=== PATIENT | female | born 1940 | race Caucasian/White ===

== ENCOUNTER 2016-11-30 20:59 | Emergency (ER) | payer MEDICARE ==
[2016-11-30 21:57] LABS: Bilirubin Negative (Negative); Blood, Urine Small (Negative); Glucose, Urine (Dipstick) Negative (Negative); Ketone, Urine Negative (Negative); Nitrite Negative (Negative); Protein, Urine (Dipstick) Negative (Neg-Trace); Urobilinogen 0.2 mg/dL (0.2-1.0)
[2016-11-30 22:02] LABS: Bacteria/HPF 2+ HPF (None Seen); Hyaline Casts/LPF 0-3 HYALINE CAST LPF (0-3 Hyaline); Squamous Epithelial 0-3 HPF (0-3)
== END 2016-12-01 00:18 | disposition home or self-care (01) ==
LOC: ERS 20:59
DX: N39.0 Urinary tract infection, site not specified (principal); I25.10 Atherosclerotic heart disease of native coronary artery without angina pectoris; Z85.830 Personal history of malignant neoplasm of bone; E11.9 Type 2 diabetes mellitus without complications; I10 Essential (primary) hypertension; Z85.118 Personal history of other malignant neoplasm of bronchus and lung; Z79.82 Long term (current) use of aspirin; Z79.899 Other long term (current) drug therapy
CPT/HCPCS: 81003; 81015; 99283

== ENCOUNTER 2016-12-28 08:42 | Outpatient (CLI) | payer MEDICARE ==
--- NOTE | 2016-12-28 10:10 | CT ---
CHEST CT SCAN WITH IV CONTRAST: COMPARISON: 08/31/16, 06/09/16. 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 FINDINGS: There has been a moderate-size right pleural effusion which has developed since the prior study. The right paramediastinal mass has markedly increased in size and now extends completely into the right hilum and even into the right infrahilar region. The overall size of this mass now measures 10 cm in anterior posterior dimension and approximately 4.5 cm transversely. The destructive process and lar ge soft tissue mass involving the right second rib has markedly increased in size. Now it measures a pproximately 6.4 x 6.5 cm in AP and transverse dimensions. The previously 0.7 cm diameter pulmonary nodule in the right lower lobe is somewhat less well seen on this study and has more of a ground-glas s opacity appearance, although is slightly larger now measuring 0.8 cm. Again noted is evidence for a small hiatal hernia and multiple gallstones. Extensive 3-vessel coronary artery calcific disease. IMPRESSION: Interval development of a moderate-size right pleural effusion. Marked enlargement of the right para mediastinal mass now extending well into the right hilar and even into the right infrahilar region. Marked enlargement of the soft tissue mass associated with destruction of the right 2nd rib. Less we ll defined but probably slightly enlarged right lower lobe pulmonary nodule which has more of a groun d-glass appearance on today's study. This is somewhat less well visualized than on the prior study i n part because of atelectasis from the right pleural effusion. Atelectasis of the right lung from th e right pleural effusion. Other findings as above. POS: [facility]
[2016-12-28] MEDS ORDERED: Iopamidol 370 76% 100 ML VIAL ONE (13:43)
== END 2016-12-28 08:43 | disposition home or self-care (01) ==
LOC: CT 08:42
PROVIDERS: ATTEND Internal Medicine Hematology & Oncology
DX: C34.10 Malignant neoplasm of upper lobe, unspecified bronchus or lung (principal); J90 Pleural effusion, not elsewhere classified; J98.11 Atelectasis; R91.1 Solitary pulmonary nodule; J98.59 Other diseases of mediastinum, not elsewhere classified; M79.9 Soft tissue disorder, unspecified
CPT/HCPCS: 71260